=== PATIENT | male | born 1970 | race Caucasian/White ===

== ENCOUNTER 2019-05-12 16:16 | Outpatient (REF) | payer OTHER, SELFPAY ==
[2019-05-12 21:31] LABS: Calculated LDL 180 mg/dL; Cholesterol 237 mg/dL (50-200); Glucose 74 mg/dL (70-100); HDL Cholesterol 32 mg/dL (40-60); Triglyceride 125 mg/dL (30-150)
== END 2019-05-12 16:36 ==
LOC: NCHCN 16:16
PROVIDERS: Visit Provider Nurse Practitioner Family
DX: Z00.00 Encounter for general adult medical examination without abnormal findings (principal)
CPT/HCPCS: 80061; 82947

== ENCOUNTER 2020-02-10 14:40 | Outpatient (REF) | payer OTHER, SELFPAY ==
[2020-02-14 04:03] LABS: SARS-CoV-2 RNA Undetected (Undetected); SARS-CoV-2 Specimen Source Nasopharynx
== END 2020-02-10 15:00 ==
LOC: NCHCN 14:40
PROVIDERS: Visit Provider Nurse Practitioner Family
DX: Z20.828 Contact with and (suspected) exposure to other viral communicable diseases (principal)
CPT/HCPCS: U0003

== ENCOUNTER 2020-11-28 15:02 | Outpatient (REF) | payer OTHER, SELFPAY ==
[2020-11-28 13:36] LABS: Calculated LDL 178 mg/dL (<100); Cholesterol 230 mg/dL (<200); Glucose 97 mg/dL (74-106); HDL Cholesterol 32 mg/dL (40-60); Triglyceride 102 mg/dL (<150)
== END 2020-11-28 15:03 | disposition home or self-care (01) ==
LOC: NCHCN 15:02
PROVIDERS: Visit Provider Nurse Practitioner Family
DX: Z13.1 Encounter for screening for diabetes mellitus (principal); Z13.220 Encounter for screening for lipoid disorders
CPT/HCPCS: 80061; 82947

== ENCOUNTER 2022-11-13 12:07 | Outpatient (REF) | payer OTHER, SELFPAY ==
[2022-11-13 15:24] LABS: Calculated LDL 187 mg/dL (<100); Cholesterol 251 mg/dL (<200); HDL Cholesterol 41 mg/dL (40-60); Triglyceride 119 mg/dL (<150)
== END 2022-11-13 12:08 | disposition home or self-care (01) ==
LOC: NCHCN 12:07
PROVIDERS: Visit Provider Internal Medicine
DX: E78.5 Hyperlipidemia, unspecified (principal); R03.0 Elevated blood-pressure reading, without diagnosis of hypertension
CPT/HCPCS: 80061

== ENCOUNTER 2023-11-16 11:07 | Outpatient (REF) | payer OTHER, SELFPAY ==
[2023-11-16 15:03] LABS: Anion Gap 6.8 mmol/L (3-11); BUN 14 mg/dL (7-18); CO2 28.2 mmol/L (21.0-32.0); Calcium 9.3 mg/dL (8.5-10.1); Calculated LDL 164 mg/dL (<100); Chloride 106 mmol/L (98-107); Cholesterol 227 mg/dL (<200); Estimated GFR 91.69 (mL/min/1.73m2); Glucose 109 mg/dL (74-106); HDL Cholesterol 40 mg/dL (40-60); Potassium 4.2 mmol/L (3.5-5.1); Sodium 141 mmol/L (136-145); Triglyceride 115 mg/dL (<150)
== END 2023-11-16 11:08 | disposition home or self-care (01) ==
LOC: NCHCN 11:07
PROVIDERS: Visit Provider Nurse Practitioner Family
DX: E78.5 Hyperlipidemia, unspecified (principal); R03.0 Elevated blood-pressure reading, without diagnosis of hypertension
CPT/HCPCS: 80048; 80061

== ENCOUNTER 2024-11-16 07:29 | Outpatient (REF) | payer OTHER, SELFPAY ==
[2024-11-16 14:47] LABS: Hemoglobin A1C 5.7 % (<5.7)
[2024-11-16 14:58] LABS: Anion Gap 6.8 mmol/L (3-11); BUN 23 mg/dL (7-18); CO2 26.2 mmol/L (21.0-32.0); CREATININE 0.9 mg/dL (0.70-1.30); Calcium 9.1 mg/dL (8.5-10.1); Calculated LDL 180 mg/dL (<100); Chloride 105 mmol/L (98-107); Cholesterol 242 mg/dL (<200); Glucose 104 mg/dL (74-106); HDL Cholesterol 39 mg/dL (>or=40); Potassium 4.4 mmol/L (3.5-5.1); Sodium 138 mmol/L (136-145); Triglyceride 117 mg/dL (<150)
== END 2024-11-16 07:30 | disposition home or self-care (01) ==
LOC: NCHCN 07:29
PROVIDERS: Visit Provider Nurse Practitioner Family
DX: Z00.00 Encounter for general adult medical examination without abnormal findings (principal)
CPT/HCPCS: 80048; 80061; 83036

== ENCOUNTER 2024-11-23 18:50 | Outpatient (REF) | payer OTHER, SELFPAY ==
[2024-11-24 19:05] LABS: PSA, Screening 0.3 ng/mL (<=3.5)
== END 2024-11-23 18:51 | disposition home or self-care (01) ==
LOC: NCHCN 18:50
PROVIDERS: Visit Provider Nurse Practitioner Family
DX: Z12.5 Encounter for screening for malignant neoplasm of prostate (principal)
CPT/HCPCS: 84153